=== PATIENT | male | born 1960 | race Caucasian/White ===

== ENCOUNTER → 2024-05-26 15:11 | Outpatient (REF) | payer BC, SELFPAY | LOC: HWRAD 15:11 | PROVIDERS: ATTENDING PHYSICIAN Orthopaedic Surgery; FAMILY PHYSICIAN Family Medicine | DX: T84.84XD Pain due to internal orthopedic prosthetic devices, implants and grafts, subsequent encounter (principal) | CPT/HCPCS: 73200 ==